=== PATIENT | male | born 1970 | race African-American/Black ===

== ENCOUNTER → 2017-09-20 | Outpatient (CLI) | payer OTHER ==
--- NOTE | 2017-09-20 16:43 | RADIOLOGY REPORT (SQ) ---
EXAM DESCRIPTION: U/S RETROPERITON (RENAL/AORTA) COMPLETED DATE/TIME: 09/20/2017 4:33 pm REASON FOR STUDY: DYSURIA R30.0 DYSURIA COMPARISON: None. TECHNIQUE: Dynamic and static grayscale images acquired of the kidneys and bladder and recorded on P ACS. Additional selected color Doppler and spectral images recorded. LIMITATIONS: None. FINDINGS: RIGHT KIDNEY: Normal size. Normal echogenicity. No solid or suspicious masses. No hydronep hrosis. No calcifications. LEFT KIDNEY: Normal size. Normal echogenicity. No solid or suspicious masses. No hydronephrosis. No calcifications. BLADDER: No masses. OTHER FINDINGS: No other significant finding. IMPRESSION: NORMAL RENAL AND BLADDER ULTRASOUND. TECHNICAL DOCUMENTATION: JOB ID: [id number] [employer]- All Rights Reserved
== END ==
LOC: RAD 15:35
PROVIDERS: ATTEND Urology
DX: R30.0 Dysuria (principal)
CPT/HCPCS: 76770

== ENCOUNTER → 2020-08-16 | Outpatient (CLI) | payer BC | LOC: OD 10:56 | PROVIDERS: ATTEND Surgery | DX: Z01.818 Encounter for other preprocedural examination (principal); E87.6 Hypokalemia; I10 Essential (primary) hypertension | CPT/HCPCS: 36415; 84132 ==

== ENCOUNTER 2020-08-17 05:43 | Day surgery (SDC) | payer BC, OTHER ==
[2020-08-13 10:30] LABS: HEMATOCRIT 34.7 % (37.9-51.0); HEMOGLOBIN 11.9 g/dL (13.5-17.0); MEAN CORPUSCULAR HEMOGLOBIN 28.2 pg (27.0-33.4); MEAN CORPUSCULAR HGB CONC 34.3 g/dL (32.0-36.0); MEAN CORPUSCULAR VOLUME 82 fl (80-97); PLATELET COUNT 232 10^3/uL (150-450); RED BLOOD COUNT 4.22 10^6/uL (4.35-5.55); RED CELL DISTRIBUTION WIDTH 14.1 % (11.5-14.0); WHITE BLOOD COUNT 7.1 10^3/uL (4.0-10.5)
[2020-08-13 10:50] LABS: ANION GAP 9 (5-19); BLOOD UREA NITROGEN 11 mg/dL (7-20); CARBON DIOXIDE 29 mmol/L (22-30); CHLORIDE 100 mmol/L (98-107); GLUCOSE 109 mg/dL (75-110)
--- NOTE | 2020-08-14 17:20 | EKG REPORT ---
SEVERITY:- NORMAL ECG - SINUS RHYTHM : Confirmed by: Glory Denson MD 14-Aug-2020 17:19:30
[~2020-08-17 05:43] MED LIST: ACETAMINOPHEN 1,000 MG/100 ML RTUPB IV ONE; ACETAMINOPHEN 1,000 MG/100 ML RTUPB IV PRN; IBUPROFEN 800 MG in NORMAL SALINE 250 ML IV PRN; LACTATED RINGERS 1000 ML IV PRN; PREGABALIN 50 MG CAPSULE ONE; PREGABALIN 50 MG CAPSULE PO PRN; VANCOMYCIN HCL 1,000 MG in DEXTROSE 5%-WATER 250 ML IV PRN
[2020-08-17] MEDS ORDERED: ONDANSETRON HCL INJ/PF 4 MG/2 ML SDV ONE (06:35)
[2020-08-17] MEDS ORDERED: FENTANYL CITRATE INJ/PF 100 MCG/2 ML AMPUL ONE (06:35)
[2020-08-17] MEDS ORDERED: MIDAZOLAM 2 MG/2 ML INJ ONE (06:35)
[2020-08-17] MEDS ORDERED: FENTANYL CITRATE INJ/PF 250 MCG/5 ML AMPULE ONE (06:35)
[2020-08-17] MEDS ORDERED: DEXAMETHASONE SOD PHOSPHATE INJ 4 MG/1 ML VIAL ONE (06:35)
[2020-08-17] MEDS ORDERED: SUGAMMADEX SODIUM 200 MG/2 ML SDV IV ONE (06:36)
[2020-08-17] MEDS ORDERED: PROPOFOL INJ 200 MG/20 ML VIAL IV ONE (06:36)
[2020-08-17] MEDS ORDERED: MORPHINE SULFATE 10 MG/ML INJ ONE (06:36)
[2020-08-17] MEDS ORDERED: BUPIVACAINE HCL 0.25 % INJ/PF (2.5 MG/1 ML) 30 ML VIAL ONE (07:10)
[2020-08-17] MEDS ORDERED: DIPHENHYDRAMINE HCL 50 MG/ML VIAL IV PRN (08:04)
[2020-08-17] MEDS ORDERED: MEPERIDINE HCL/PF INJ 25 MG/1 ML DISP.SYRIN IV PRN (08:04)
[2020-08-17] MEDS ORDERED: FENTANYL CITRATE INJ/PF 100 MCG/2 ML AMPUL IV PRN ×3 (08:04)
[2020-08-17] MEDS ORDERED: PROMETHAZINE HCL INJ 25 MG/1 ML VIAL IV PRN ×2 (08:04)
[2020-08-17] MEDS ORDERED: OXYCODONE-ACETAMINOPHEN 5-325 MG TABLET PO PRN ×2 (08:04)
[2020-08-17] MEDS ORDERED: MORPHINE SULFATE 10 MG/ML INJ IV PRN (08:04)
[2020-08-17] MEDS ORDERED: PHENYLEPHRINE HCL INJ/PF 10 MG/1 ML SDV ONE (09:32)
[2020-08-17] MEDS ORDERED: ROCURONIUM BROMIDE INJ 50 MG/5 ML VIAL IV ONE (09:32)
--- NOTE | 2020-08-17 11:49 | Discharge Summary ---
Discharge Summary (SDC) - Discharge Final Diagnosis: Nepalese cheese ventral hernia Date of Surgery: 08/17/20 Discharge Date: 08/17/20 Condition: Stable Treatment or Instructions: Discharge home. Diet as tolerated. Activity: No lifting greater than 10 pounds x 6 weeks. Follow-up with [facility] in 7 to 10 days. [place] 10/325 mg p.o. every 6 hours as needed for pain. Okay to use [id number] ibuprof en as needed. Okay to shower starting on . No swimming pools or tub baths x2 weeks. Prescriptions: Hydrocodone/Acetaminophen [[place] 10-325 mg Tablet] 1 tab PO Q6HP PRN #28 tablet PRN Reason: For Pain Referrals: CECILIO NICKERSON MD [Primary Care Provider] - Discharge Diet: As Tolerated Respiratory Treatments at Home: Deep Breathing/Coughing, Incentive Spirometer Discharge Activity: Balance Activity w/Rest, No Lifting Over 10 Pounds, No Lifting/Push/Pulling Home Care Assistance: None Needed Report the Following to Your Physician Immediately: Shortness of Breath, Nausea, Vomiting, Increase in Pain, Fever over 101 Degrees, Unusual Bleeding, Redness, Swelling
[2020-08-17] MEDS ORDERED: HYDROCODONE/ACETAMINOPHEN 10-325 MG TABLET PO PRN (11:57)
[2020-08-17] MEDS ORDERED: HYDROCODONE/ACETAMINOPHEN 10-325 MG TABLET ONE (12:05)
--- NOTE | 2020-08-17 15:52 | Operative Report ---
Nonrecallable Operative Report DATE OF SURGERY: 08/17/20 PREOPERATIVE DIAGNOSIS: Symptomatic ventral hernia POSTOPERATIVE DIAGNOSIS: Symptomatic, incarcerated Egyptian cheese ventral hernia OPERATION: Robot-assisted laparoscopic incarcerated ventral hernia repair with mesh SURGEON: MIKEL BRINK ANESTHESIA: GA TISSUE REMOVED OR ALTERED: None COMPLICATIONS: None apparent ESTIMATED BLOOD LOSS: Minimal PROCEDURE: Drains/implants: 25 x [address] hernia mesh. Procedure in detail: After informed consent was obtained, the patient was brought to the operating room and laid in the supine position. The area of the abdomen was prepped and draped in a normal sterile fashion. An incision was created in the left upper quadrant. The 5 mm trocar and 5 mm camera were then inserted into the abdominal cavity under direct laparoscopic visualization using the Optiview technique. Next, an 8 mm robotic trocar was placed in the left lower quadrant. A 12 mm balloon trocar was placed in the left mid abdomen. This was all done under direct laparoscopic visualization. Next the left upper quadrant trocar was removed and replaced with an 8 mm robotic trocar. The robot was brought over the patient and docked appropriately. I then assumed my position at the surgeon's console. Attention was turned to the hernia sac. There was a large amount of omentum incarcerated within the hernia. Using sharp dissection and electrocautery the omentum was freed from the hernia defect. It was reduced back into the abdo chen cavity. The supraumbilical/epigastric defect was then inspected. The preperitoneal fat was freed from around the defect both superiorly and inferiorly. Upon removal of the preperitoneal fat from the abdominal wall, multiple other small ventral hernia defects were identified. There was approximately 7 in total. In light of this finding, a 25 x [address] hernia mesh was chosen to cover all the defects completely. The midline was then closed using #1, nonabsorbable V lock suture in simple running fashion. This reapproximated the rectus muscles in the midline. Next, the Ventralight ST hernia mesh was inserted into the abdomen. It was apposed to the anterior abdominal wall using the EPS. The mesh was then sutured circumferentially to the anterior abdominal wall using 2-0 V-Loc suture in simple running fashion. Once the mesh was completely affixed to the anterior abdominal wall, the robot was undocked, and I resumed my place at the patient's bedside. The 8 mm trocar sites were closed using 0 Vicryl suture in simple interrupted fashion with the aid of the Jeffrey-Alyssa device. The 12 mm trocar site was closed using 0 Vicryl suture in [id number] fashion, with the aid of the Jeffrey-Alyssa device. The overlying skin was closed using 4-0 Vicryl Rapide suture in subcuticular fashion. Dressings were then placed, and the procedure was concluded. All sponge, instrument, and needle counts were correct x2. Condition: Stable.
[2020-08-17 17:33] VITALS: BP 130/90
== END 2020-08-17 17:40 | disposition home or self-care (01) ==
LOC: OROUT 05:43
PROVIDERS: ATTEND Surgery
DX: K43.6 Other and unspecified ventral hernia with obstruction, without gangrene (principal); Z20.828 Contact with and (suspected) exposure to other viral communicable diseases; I10 Essential (primary) hypertension; E78.5 Hyperlipidemia, unspecified; J45.909 Unspecified asthma, uncomplicated; Z79.899 Other long term (current) drug therapy; Z79.82 Long term (current) use of aspirin
CPT/HCPCS: 49653; S2900; 36415; 790; 80048; 84132; 85027; 87635; 93005; 93010; C1781; C9803; J0131; J1100; J1741; J2250; J2270; J2370; J2405; J2704; J3010; J3370; J3490; J7050; J7060

== ENCOUNTER 2020-08-27 14:25 | Emergency (ER) | payer BC ==
[2020-08-27] MEDS ORDERED: NORMAL SALINE 1000 ML 1,000 ML IV ONE (15:37)
--- NOTE | 2020-08-27 15:38 | ER Document Report ---
ED Medical Screen (RME) - General Stated Complaint: PAIN AT [place], ABDOMINAL PAIN, BACK PAIN Time Seen by Provider: 08/27/20 15:31 Primary Care Provider: ANKUR PACK MD [Primary Care Provider] - Follow up as needed Notes: Patient is a 50-year-old male who presents to the emergency department with a chief complaint of abdominal pain from his umbilical area to his back. Patient had a ventral hernia repair done on August 17 and started to have pain. He is taking Tylenol his last dose was at noon. Denies any nausea or vomiting. Exam: Tenderness at incision sites on abdomen. I have greeted and performed a rapid initial assessment of this patient. A comprehensive ED assessment and evaluation of the patient, analysis of test results and completion of medical decision making process will be conducted by an additional ED providers. TRAVEL OUTSIDE OF THE [place] IN LAST 30 DAYS: No - Related Data Allergies/Adverse Reactions: Penicillins Allergy (Verified 08/17/20 06:24) Past Medical History - Past Medical History Cardiac Medical History: Reports: Hx Hypertension Denies: Hx Coronary Artery Disease, Hx Heart Attack Pulmonary Medical History: Reports: Hx Asthma - SEASONAL, HAS NOT USED INH OVER 10YRS Denies: Hx Bronchitis, Hx COPD, Hx Pneumonia Neurological Medical History: Denies: Hx Cerebrovascular Accident, Hx Seizures Musculoskeltal Medical History: Denies Hx Arthritis - Immunizations Hx Diphtheria, Pertussis, Tetanus Vaccination: No Physical Exam - Vital signs Vitals: Temp Pulse Resp BP Pulse Ox 98.8 F 79 22 H 153/95 H 96 08/27/20 14:33 08/27/20 14:33 08/27/20 14:33 08/27/20 14:33 08/27/20 14:33 Course - Vital Signs Vital signs: Temp Pulse Resp BP Pulse Ox 98.8 F 79 22 H 153/95 H 96 08/27/20 14:33 08/27/20 14:33 08/27/20 14:33 08/27/20 14:33 08/27/20 14:33 Doctor's Discharge - Discharge Referrals: ANKUR PACK MD [Primary Care Provider] - Follow up as needed
[2020-08-27 17:19] LABS: ABSOLUTE EOSINOPHILS # (AUTO) 0.2 10^3/uL (0.0-0.6); ABSOLUTE MONOCYTES (AUTO) 0.7 10^3/uL (0.1-1.4); ABSOLUTE NEUT (AUTO) 5.2 10^3/uL (1.7-8.2); BASOPHILS % (AUTO) 0.4 % (0-2); EOSINOPHILS % (AUTO) 1.9 % (0-6); HEMATOCRIT 34.6 % (37.9-51.0); HEMOGLOBIN 12.1 g/dL (13.5-17.0); LYMPHOCYTES % (AUTO) 25.2 % (13-45); MEAN CORPUSCULAR HEMOGLOBIN 28.4 pg (27.0-33.4); MEAN CORPUSCULAR HGB CONC 34.8 g/dL (32.0-36.0); MEAN CORPUSCULAR VOLUME 82 fl (80-97); MONOCYTES % (AUTO) 8.2 % (3-13); PLATELET COUNT 315 10^3/uL (150-450); RED BLOOD COUNT 4.24 10^6/uL (4.35-5.55); RED CELL DISTRIBUTION WIDTH 14.2 % (11.5-14.0); SEGMENTED NEUTROPHILS % (AUTO) 64.3 % (42-78); TOTAL CELLS COUNTED % (AUTO) 100 %; WHITE BLOOD COUNT 8.1 10^3/uL (4.0-10.5)
[2020-08-27 17:33] LABS: APPEARANCE,URINE CLEAR; BILIRUBIN,URINE NEGATIVE (NEGATIVE); COLOR,URINE YELLOW; GLUCOSE, URINE NEGATIVE (NEGATIVE); KETONES,URINE NEGATIVE (NEGATIVE); LEUKOCYTE ESTERASE,URINE NEGATIVE (NEGATIVE); NITRITE,URINE NEGATIVE (NEGATIVE); PROTEIN,URINE NEGATIVE (NEGATIVE); URINE SPECIFIC GRAVITY 1.023; UROBILINOGEN,URINE NEGATIVE mg/dL (<2.0)
[2020-08-27 17:37] LABS: ALBUMIN 3.9 g/dL (3.5-5.0); ALKALINE PHOSPHATASE 224 U/L (38-126); ANION GAP 6 (5-19); ASPARTATE AMINO TRANSFERASE 67 U/L (17-59); BILIRUBIN,DIRECT 0.2 mg/dL (0.0-0.4); BILIRUBIN,TOTAL 0.3 mg/dL (0.2-1.3); BLOOD UREA NITROGEN 14 mg/dL (7-20); CALCIUM 9.2 mg/dL (8.4-10.2); CARBON DIOXIDE 34 mmol/L (22-30); CHLORIDE 98 mmol/L (98-107); GLUCOSE 91 mg/dL (75-110); POTASSIUM 3.4 mmol/L (3.6-5.0); TOTAL PROTEIN 7.3 g/dL (6.3-8.2)
--- NOTE | 2020-08-27 21:21 | RADIOLOGY REPORT (SQ) ---
EXAM DESCRIPTION: CT ABD/PELVIS WITH IV ORAL 08/27/2020 12:00 AM [facility] CLINICAL HISTORY: 50 years Male, abdominal pain; recent hernia repair; ; COMPARISON: Prior CT dated 11/26/2015 Technical factors: This exam was performed according to our departmental dose-optimization program, which includes automated exposure control, adjustment of the mA and/or kV according to patient size and/or use of iterative reconstruction technique. Images were obtained after the administration of 99 mL of Omnipaque 350 intravenous contrast. FINDINGS: Portal venous phase of imaging is limited by excessive motion artifact. Limited evaluation of the lower chest reveals parenchymal bands about the right lower lobe, indicating areas of atelectasis and/or scar. Liver, spleen, pancreas, gallbladder, and right adrenal gland appear normal. There is nodular enlargement of the left adrenal gland which appears unchanged in configuration from the previous exam dated 11/26/2015, considered a benign adenoma. Both kidneys enhance symmetrically. No hydronephrosis or hydroureter. Urinary bladder is well distended and shows no suspicious finding. Small fat-containing left inguinal hernia. A few interspersed colonic diverticula are evident. No adjacent inflammation. Appendix is normal. No evidence of bowel obstruction. Amorphous fluid collection is noted about the anterior aspect of the peritoneal cavity extending to the right of midline. The largest component of the collection measures 7.0 x 2.4 cm in size on image 35 series 2. Additionally, the collection does not appear significantly rim-enhancing. An additional pocket of fluid is noted about the superficial soft tissues of the anterior abdominal wall measuring 6.1 x 3.5 cm in size on image 43 of series 2. Additionally, there are postoperative changes of pre-existing ventral hernia repair. Scattered foci of soft tissue gas are noted about the superficial soft tissues of the right lower quadrant on image 58 of series 2, nonspecific. There is also mild soft tissue swelling about the superficial soft tissues of the left lower quadrant. An additional small pocket of fluid and gas is noted about the superficial soft tissues of the left hemiabdomen on image 27 of series 5 measuring 2.7 x 1.0 cm in size. Similar appearing fluid collection is also evident about the superficial soft tissues of the left lower quadrant on image 44 of series 5 measuring 3.0 x 1.0 cm in size. No lymphadenopathy. Vascular structures appeared opacify with contrast normally. A small amount of free fluid layers dependently within the pelvis. Bone windows show no destructive osseous lesions. IMPRESSION: Postoperative changes of ventral hernia repair. Underlying fluid collection located about the anterior aspect of the peritoneal cavity extending into the right hemiabdomen measuring up to 7.0 x 2.5 cm in size at its greatest extent. While this may be postoperative, the sterility of this collection is indeterminate. Additional fluid collections located within the superficial soft tissues of the anterior abdominal wall as well as the left hemiabdomen may also be postoperative and are also of indeterminate sterility.
[2020-08-27] MEDS ORDERED: SIMETHICONE 80 MG TAB.CHEW PO ONE (23:34)
[2020-08-27] MEDS ORDERED: OXYCODONE-ACETAMINOPHEN 5-325 MG TABLET PO ONE (23:34)
[2020-08-27] MEDS ORDERED: ONDANSETRON ODT 4 MG TAB (6 TAB/ER DISP) PO PRN (23:34)
--- NOTE | 2020-08-27 23:34 | ER Document Report ---
ED GI/ - General Chief Complaint: Abdominal Pain Stated Complaint: PAIN AT [place] PO[place], ABDOMINAL PAIN, BACK PAIN Time Seen by Provider: 08/27/20 15:31 Primary Care Provider: [facility] [Provider Group] - Follow up as needed Mode of Arrival: Ambulatory Information source: Patient Notes: 50-year-old male presented to ED for complaint of abdominal pain from his umbilical area to his back. He had a ventral hernia repair done on 17 August. He started to have pain after the surgery. He states he has been taking Tylenol and his last dose was around noon. He states when he first had the surgery he was doing hydrocodone but it was just making her sleepy and they wanted him to get up and walk. He does not have any nausea or vomiting or any fevers. He does have tenderness at each incisional site but no swelling redness or inflammation at the sites. Constitutional: Negative for fever. HENT: Negative for sore throat. Eyes: Negative for visual changes. Cardiovascular: Negative for chest pain. Respiratory: Negative for shortness of breath. Gastrointestinal: Abdominal pain umbilical area to the back. He does have surgical incisions from laparoscopic hernia repair Genitourinary: Negative for dysuria. Musculoskeletal: Patient does have gas pains abdomen and back. Skin: Negative for rash. Neurological: Negative for headaches, weakness or numbness. 10 point ROS negative except as marked above and in HPI. VITAL SIGNS: Within normal limits. GENERAL: No acute distress, non-toxic appearance. HEAD: Normal with no signs of head trauma. EYES: PERRLA, EOMI, conjunctiva normal, no discharge. EARS: Hearing grossly intact. NOSE: Normal. THROAT: Oropharynx is normal. NECK: Normal range of motion, no tenderness, supple, no lymphadenopathy, No adenopathy, no JVD. CHEST: Clear breath sounds bilaterally. No wheezes, rales, or rhonchi. CARDIAC: Regular rate and rhythm. S1 and S2, without murmurs, gallops, or rubs. VASCULAR: No Edema. Peripheral pulses normal and equal in all extremities. ABDOMEN: Abdomen tender to palpation to the umbilical area to the left. He does have surgical incisions from laparoscopic surgery that are well clean no redness no swelling no signs of inflammation or infection. Does have tender to each incisional site. GASTROINTESTINAL: Hyperactive bowel sounds throughout abdomen GENITOURINARY: Normal, No tenderness LYMPATHTIC: No lymphadenopathy noted. MUSCULOSKELETAL: Good range of motion of all major joints. Extremities without clubbing, cyanosis or edema. NEUROLOGICAL: Alert and oriented x 3. No focal sensory or strength deficits. Speech normal. Follows commands appropriately. PSYCHIATRIC: Normal Affect, judgement and mood. SKIN: Normal appearance with no rashes or lesions. TRAVEL OUTSIDE OF THE [place] IN LAST 30 DAYS: No - HPI Patient complains to provider of: Abdominal pain, Vomiting Onset: Other - Since surgery on August 17 Timing/Duration: Intermittent Quality of pain: Cramping, Sharp Severity at maximum: Moderate Severity in ED: Moderate Pain Level: 3 Location: LUQ, LLQ, RUQ, RLQ, Other - Periumbilical Associated symptoms: Nausea, Radiates to back, Vomiting Exacerbated by: Movement Relieved by: Denies Similar symptoms previously: Yes Recently seen / treated by doctor: Yes - Related Data Allergies/Adverse Reactions: Penicillins Allergy (Verified 08/17/20 06:24) Past Medical History - General Information source: Patient - Social History Smoking Status: Never Smoker Frequency of alcohol use: None Drug Abuse: None Lives with: Family Family History: Reviewed & Not Pertinent Patient has suicidal ideation: No Patient has homicidal ideation: No - Past Medical History Cardiac Medical History: Reports: Hx Hypertension Pulmonary Medical History: Reports: Hx Asthma - SEASONAL, HAS NOT USED INH OVER 10YRS EENT Medical History: Reports: None Neurological Medical History: Reports: None Endocrine Medical History: Reports: None Renal/ Medical History: Reports: None Malignancy Medical History: Reports None GI Medical History: Reports: Other - Ventral hernia Musculoskeletal Medical History: Reports Hx Musculoskeletal Trauma - Occult fracture Skin Medical History: Reports None Psychiatric Medical History: Reports: None Traumatic Medical History: Reports: Hx Fractures - Clavicle Infectious Medical History: Reports: None Past Surgical History: Reports: Hx Abdominal Surgery - Ventral hernia repair - Immunizations Hx Diphtheria, Pertussis, Tetanus Vaccination: No Physical Exam - Vital signs Vitals: Temp Pulse Resp BP Pulse Ox 98.8 F 79 22 H 153/95 H 96 08/27/20 14:33 08/27/20 14:33 08/27/20 14:33 08/27/20 14:33 08/27/20 14:33 Course - Re-evaluation Re-evalutation: 08/27/20 23:[address] scan with Dr. Chavis and with Dr. Browne the surgeon. Dr. Browne stated these were all normal changes expected after surgery. He stated the patient could go home he is to follow-up with Dr. Browne on Sunday as scheduled. I have given patient a copy of the CT results as well as the blood work to take with him to his follow-up appointment. Patient verbalized understanding and agreement with treatment plan. Patient will be treated with Percocet and Mylicon before being discharged. - Vital Signs Vital signs: Temp Pulse Resp BP Pulse Ox 98.4 F 85 20 149/81 H 99 08/28/20 00:12 08/28/20 00:12 08/28/20 00:12 08/28/20 00:12 08/28/20 00:12 - Laboratory Results Result Diagrams: 08/27/20 16:40 08/27/20 16:40 Laboratory Results Interpreted: 08/27/20 08/27/20 08/27/20 16:40 16:40 16:40 RBC 4.24 L Hgb 12.1 L Hct 34.6 L RDW 14.2 H Potassium 3.4 L Carbon Dioxide 34 H Creatinine 1.26 H AST 67 H ALT 76 H Alkaline Phosphatase 224 H Urine Ascorbic Acid 40 H Critical Laboratory Results Reviewed: No Critical Results - Radiology Results Critical Radiology Results Reviewed: No Critical Results Discharge - Discharge Clinical Impression: Postoperative abdominal pain Condition: Stable Disposition: HOME, SELF-CARE Additional Instructions: ABDOMINAL PAIN: There are many causes of abdominal pain. Pain can mean a serious problem requiring surgery (such as appendicitis). It can also be an innocent problem juancarlos t goes away on its own (such as a viral infection). Often, time must pass to determine the cause of pain. The physician does not feel that hospitalization is necessary, at present. Things may change within the next 24 hours. Call the doctor or come back for re- examination if any problems occur, such as: (1) Pain that becomes more severe, steady, or becomes concentrated in one specific area. Also, pain that is more severe with movement or coughing. (2) Vomiting that persists or becomes more frequent. (3) Blood in the vomitus, urine, or bowel movements. Blood in the stool may have a tarry or black appearance. (4) Shaking chills or fever greater than 100 degrees F. (5) The abdomen becomes more distended or swollen. (6) Bowel movements cease. (7) Failure to improve as expected. The changes on your CT and labs are normal reactions from your surgery. Spoke with Dr. Browne the surgeon who stated you are to keep your appointment on Sunday use the Mylicon or gas medicine. To increase your ambulation. ANTINAUSEA MEDICATION: You have been given a medication to suppress nausea and vomiting. This type of medication can be given as a shot, pill, or suppository. It will usually last for many hours. Pills and shots usually last six to eight hours, suppositories last about 12 hours. For the typical illness, only one or two doses of the medication may be necessary. Mild lightheadedness may occur. This type of medicine can cause drowsiness. Do not drive or operate dangerous machinery while under its influence. Do not mix with alcohol. See your doctor at once if you have muscle spasms or tightness, or uncontrollable motions (particularly of the neck, mouth, or jaw). Persistent vomiting or severe lightheadedness should also be evaluated by the physician. ORAL NARCOTIC MEDICATION: You have been given a Percocet for pain control. This medication is a narcotic. It's best taken with food, as nausea can result if taken on an empty stomach. Don't operate machinery or drive within six hours of taking this medication. Do not combine this medicine with alcohol, or with any medication which can cause sedation (such as cold tablets or sleeping pills) unless you get permission from the physician. Narcotics tend to cause constipation. If possible, drink plenty of fluids and eat a diet high in fiber and fruits. FOLLOW-UP CARE: If you have been referred to a physician for follow-up care, call the physicians office for an appointment as you were instructed or within the next two days. If you experience worsening or a significant change in your symptoms, notify the physician immediately or return to the Emergency Department at any time for re-evaluation. Prescriptions: Ondansetron [Zofran Odt 4 mg Tablet] 1 tab PO Q6H #15 tab.rapdis Forms: Elevated Blood Pressure Referrals: [facility] [Provider Group] - Follow up as needed
[2020-08-28 00:30] VITALS: BP 149/81
== END 2020-08-28 00:12 | disposition home or self-care (01) ==
LOC: ER 14:25
DX: G89.18 Other acute postprocedural pain (principal); R10.33 Periumbilical pain; I10 Essential (primary) hypertension
CPT/HCPCS: 99285; 96360; 96361; 36415; 85025; 80053; 81001; 74177; J7030